=== PATIENT | male | born 1995 | race Caucasian/White ===

== ENCOUNTER 2019-04-17 20:31 | Inpatient (IN) | payer OTHER ==
[~2019-04-17] VITALS: Ht 182.9 cm; Wt 124.7 kg
[2019-04-17 20:40] VITALS: BP 143/85
--- NOTE | 2019-04-17 20:52 | NUR ---
PT BIB SELF WITH C/O ABD PAIN SINCE FRIDAY NIGHT, W/NAUSEA, PT STATES PAIN IS NOW IN RT LOWER ABD , 02/05. INCRESES WITH MOVEMENT . HAD DIARRGEA ON FRIDAY, ABDOMEN SOFT TO TOUCH AND NON-DISTENDED. DENIES ANY FEVER, CHILLS, VOMITING AT THIS TIME. ER MD TO SEE THE PT . PT LYING COMFORTABLY IN HIS BED. WILL CONTINUE TO MONITOR PT. NO PMH NKA
[2019-04-17] MEDS ORDERED: MORPHINE SULFATE 4 MG/ML SYR IVP ONE (22:00)
[2019-04-17 22:27] LABS: BASOPHILS % (AUTO) 0.4 % (0.0-2.0); EOSINOPHILS # (AUTO) 0.3 K/uL (0-0.4); EOSINOPHILS % (AUTO) 3.7 % (0.0-4.0); HEMATOCRIT 42.2 % (36-52); HEMOGLOBIN 13.7 g/dL (12.0-18.0); LYMPHOCYTES # (AUTO) 2.4 K/uL (2.0-11.5); LYMPHOCYTES % (AUTO) 29.2 % (20.5-51.1); MEAN CORPUSCULAR HEMOGLOBIN 27 pg (27-31); MEAN CORPUSCULAR HGB CONC 32 g/dL (33-37); MEAN CORPUSCULAR VOLUME 81.9 fL (80-94); MONOCYTES # (AUTO) 0.8 K/uL (0.8-1.0); MONOCYTES % (AUTO) 9.7 % (1.7-9.3); NEUTROPHILS # (AUTO) 4.6 K/uL (1.8-7.7); PLATELET COUNT (AUTO) 286 K/uL (140-450); RED BLOOD CELL COUNT(AUTO) 5.15 MIL/uL (4.20-6.10); RED CELL DISTRIBUTION WIDTH 14.5 % (11.6-13.7); WHITE BLOOD COUNT (AUTO) 8.1 K/uL (4.8-10.8)
[2019-04-17 22:38] LABS: ANION GAP 9.8 (8-16); CARBON DIOXIDE 28.4 mmol/L (21-32); POTASSIUM 4.2 mmol/L (3.5-5.1)
[2019-04-17 22:44] LABS: ALBUMIN 3.6 g/dL (3.4-5.0); TOTAL BILIRUBIN 0.3 mg/dL (0.0-1.0)
--- NOTE | 2019-04-17 22:45 | NUR ---
PT VOIDED 400 ML CLEAR YELLOW URINE.
--- NOTE | 2019-04-17 23:15 | NUR ---
URINE SAMPLE GIVEN TO LAB
[2019-04-17 23:35] LABS: APPEARANCE,URINE CLEAR (CLEAR); BILIRUBIN,URINE NEGATIVE (NEGATIVE); BLOOD, URINE NEGATIVE (NEGATIVE); COLOR,URINE YELLOW (YELLOW); LEUKOCYTE ESTERASE ,URINE NEGATIVE (NEGATIVE); NITRITE, URINE NEGATIVE (NEGATIVE); UGLUCOSE NEGATIVE (NEGATIVE)
[2019-04-18] MEDS: NACL 0.9% 1,000 ML IV SCH ×3 (00:20→12:11)
--- NOTE | 2019-04-18 00:24 | NUR ---
SPOKE WITH HENRY FROM [employer] UPDATED REGARING PT CONDITION.
[2019-04-18] MEDS ORDERED: PIPERACILLIN/TAZOBACTAM 3.375 GM in DEXTROSE 5% 50 ML IV ONE (01:00)
[2019-04-18] MEDS ORDERED: metroNIDAZOLE 500 MG/NS PREMIX 100 ML IV ONE (01:00)
[2019-04-18] MEDS ORDERED: NACL 0.9% 1,000 ML IV ONE (01:00)
[2019-04-18] MEDS ORDERED: PIPERACILLIN/TAZOBACTAM 3.375 GM VIAL IV ONE ×2 (01:16→06:06)
[2019-04-18] MEDS ORDERED: MORPHINE SULFATE 2 MG/ML SYR IVP PRN ×2 (02:15→08:20)
[2019-04-18] MEDS ORDERED: DOCUSATE SODIUM 100 MG GELCAP PO PRN (02:15)
[2019-04-18] MEDS ORDERED: ACETAMINOPHEN 325 MG TAB PO PRN (02:15)
[2019-04-18] MEDS ORDERED: LORazepam 2 MG/ML VIAL IM/IVP PRN (02:15)
[2019-04-18] MEDS ORDERED: HYDROcodone/APAP 5/325 MG 1 TAB TAB PO PRN (02:15)
[2019-04-18] MEDS ORDERED: ONDANSETRON 4 MG/2 ML VIAL IM/IVP PRN (02:15)
[2019-04-18 02:32] VITALS: BP 144/75
--- NOTE | 2019-04-18 02:32 | NUR ---
CALLED DR SHAVER FOR ORDER TO OBTAIN CONSENT.
--- NOTE | 2019-04-18 02:45 | NUR ---
Patient will be admitted to care of DR. TOBAR. Admited to MED SURG. Will go to [facility]. Belongings list completed. Report to ALFA GRNAGER.
--- NOTE | 2019-04-18 02:45 | NUR ---
Pt report given to ALFA GRANGER. Transfer of care at this time. VSS
--- NOTE | 2019-04-18 02:55 | NUR ---
RECEIVED BEDSIDE REPORT FROM PRESSURE VESSEL INSPECTOR. PT CAME IN WHEELCHAIR AND AMBULATED TO BED WITH STRONG AND STEADY GAIT. ON ROOM AIR RESPIRATIONS ARE EQUAL AND UNLABORED. SKIN IS INTACT IV ON RAC 20G FLAGYL INFUSING. DX APPENDICITIS. ORDER FOR SURGERY WITH DR SHAVER 04/18 CONSENT SIGNED. NPO SIGN ON DOOR. MRSA SWAB OBTAINED. VS: 144/75 HR 73, 97.8, 100% RA, 16 PAIN TOLERABLE 10. PLAN OF CARE DISCUSSED. ORIENTED PATIENT TO ROOM,STAFF, VISITING HOURS, AND CALL LIGHT. WILL ROUND FREQUENTLY.
[2019-04-18 03:35] LABS: CHOL/HDL RATIO 5.2 (1-4.5); MAGNESIUM 2.1 mg/dL (1.8-2.4); PHOSPHORUS 4.1 mg/dL (2.5-4.9); THYROID STIMULATING HORMONE 1.44 uIU/mL (0.34-3.74)
[2019-04-18 03:36] LABS: PROTHROMBIN TIME 9.4 secs (10.8-13.4)
--- NOTE | 2019-04-18 04:32 | NUR ---
DOCTOR IN TO SEE PATIENT. PT IS RESTING COMFORTABLY IN BED. NO S/S OF DISTRESS. WILL CONTINUE TO MONITOR.
[2019-04-18 04:57] LABS: BARBITURATE, URINE NEGATIVE ng/ml (NEG <=200); BENZODIAZEPINE, URINE NEGATIVE ng/mL (NEG <=200); CANNABINOID, URINE NEGATIVE ng/mL (NEG <=50); COCAINE, URINE NEGATIVE ng/mL (NEG <=300); OPIATE, URINE NEGATIVE ng/mL (NEG <=2000); PHENCYCLIDINE SCREEN,URINE NEGATIVE ng/mL (NEG <=25)
[2019-04-18] MEDS: PIPERACILLIN/TAZOBACTAM 3.375 GM in DEXTROSE 5% 50 ML IV SCH ×3 (06:00→22:12)
[2019-04-18] MEDS: metroNIDAZOLE 500 MG/NS PREMIX 100 ML IV SCH ×3 (06:36→22:53)
--- NOTE | 2019-04-18 06:38 | NUR ---
FLAGYL NOW INFUSING PER ORDERS. NO S/S OF DISTRESS. CALL LIGHT IS WITHIN REACH.
--- NOTE | 2019-04-18 07:22 | NUR ---
GAVE BEDSIDE REPORT TO DAY RN. PT ENDORSED IN STABLE CONDITION.
--- NOTE | 2019-04-18 07:23 | NUR ---
RECEIVED BEDSIDE REPORT FROM DIRECTOR SCHOOL OF NURSING NURSE AT BEDSIDE FOR CONTINUITY OF CARE. PT ON ROOM AIR, RESPIRATIONS EVEN AND UNLABORED, REPORTS TOLERABLE PAIN, NOT REQUESTING FOR PAIN MEDICATION AT THE MOMENT. CONSENT SIGNED. NPO FOR PROCEDURE WITH DR SHAVER. DR SHAVER IN TO SPEAK TO PATIENT. PROCEDURE SCHEDULE FOR 1899 TODAY. PLAN OF CARE DISCUSSED. HE VERBALIZED UNDERSTANDING. IV SITE INTACT, PATENT, AND ASYMPTOMATIC, INFUSING IVF WELL. UPDATED BOARD. SAFETY PRECAUTION IN PLACE, CALL LIGHT WITHIN REACH, WILL CONTINUE TO MONITOR PATIENT.
--- NOTE | 2019-04-18 07:38 | NUR ---
ISAK IVPB FINISHED INFUSING. NO COMPLAINTS FROM PATIENT. PATIENT AWARE OF PROCEDURE WITH DR. SHAVER SCHEDULED FOR 1899. WILL CONTINUE TO MONITOR PATIENT.
[2019-04-18 08:00] VITALS: BP 123/62
--- NOTE | 2019-04-18 08:15 | NUR ---
VS WNL. PATIENT RESTING COMFORTABLY IN BED, NO COMPLAINTS AT THIS TIME. WILL CONTINUE TO MONITOR PATIENT.
--- NOTE | 2019-04-18 11:30 | NUR ---
PATIENT RESTING IN BED, NO COMPLAINTS AT THIS TIME. INFORMED PATIENT MORE ABOUT PREOP AND POST OP OF PROCEDURE WITH DR. SHAVER, HE VERBALIZED UNDERSTANDING. STATES TOLERABLE PAIN AT THE MOMENT, NOT REQUESTING FOR PAIN MEDICATION. WILL CONTINUE TO MONITOR PATIENT.
--- NOTE | 2019-04-18 14:55 | NUR ---
PATIENT'S PARENTS AT BEDSIDE. UPDATED THEM WITH PLAN OF CARE, PRE OP AND POST OP. THEY VERBALIZED UNDERSTANDING. PATIENT STATES TOLERABLE PAIN AT THIS TIME, NO REQUESTING FOR PAIN MEDICATION. EDUCATED PATIENT ABOUT PAIN MANAGEMENT, PATIENT VERBALIZED UNDERSTANDING AND STATES THAT HE IS "OKAY". NO NEED FOR PRN PAIN MEDICATION AT THIS MOMENT. ALL NEEDS MET, NO COMPLAINTS AT THIS TIME. WILL CONTINUE TO MONITOR PATIENT.
--- NOTE | 2019-04-18 15:09 | NUR ---
ORDERED ANTIBIOTICS GIVEN. PATIENT TOLERATING IT. NO COMPLAINTS AT THIS TIME. WILL CONTINUE TO MONITOR PATIENT.
[2019-04-18 16:00] VITALS: BP 132/86
--- NOTE | 2019-04-18 18:24 | NUR ---
SIGNIFICANT OTHER EDIL TINAJERO AT BEDSIDE, UPDATED HER ON PT'S STATUS AND IMPENDING PROCEDURE WITH DR. SHAVER, SHE VERBALIZED UNDERSTANDING. REQUESTED THAT PATIENT REMOVE HIS JEWELRY, PATIENT ATTEMPTED TO REMOVED EARRINGS, UNABLE. WILL ENDORSE TO OR NURSE. PREOP CHECKLIST COMPLETED. PATIENT LYING COMFORTABLY IN BED, NO COMPLAINT AT THIS TIME. WILL CONTINUE TO MONITOR PATIENT.
--- NOTE | 2019-04-18 18:30 | NUR ---
MICHEAL FROM SURGERY CALLED. UPDATED HIM ABOUT PATIENT'S STATUS. UPDATED FAMILY AND PATIENT ABOUT PROCEDURE NEWS. THEY VERBALIZED UNDERSTANDING.
[2019-04-18] MEDS ORDERED: BUPIVACAINE-MPF/EPI 0.25% 30 ML VIAL INJ ONE (18:50)
--- NOTE | 2019-04-18 19:00 | NUR ---
DR SHAVER CALLED, INFORMED HIM PATIENT HAD ALREADY LEFT FLOOR, HE VERBALIZED UNDERSTANDING.
[2019-04-18] MEDS ORDERED: DESFLURANE 240 ML BTL INH ONE (19:09)
[2019-04-18] MEDS ORDERED: NEOSTIGMINE 1:1000 10 MG/10 ML VIAL ONE (19:09)
[2019-04-18] MEDS ORDERED: ONDANSETRON 4 MG/2 ML VIAL ONE (19:09)
[2019-04-18] MEDS ORDERED: LIDOCAINE 2% 100 MG/5 ML SYR IVP ONE (19:09)
[2019-04-18] MEDS ORDERED: GLYCOPYRROLATE 0.2 MG/ML VIAL ONE (19:09)
[2019-04-18] MEDS ORDERED: PROPOFOL 200 MG/20 ML VIAL IV ONE (19:09)
[2019-04-18] MEDS ORDERED: SUCCINYLCHOLINE CHLORIDE 200 MG/10 ML VIAL IVP ONE (19:09)
[2019-04-18] MEDS ORDERED: DEXAMETHASONE 4 MG/ML VIAL ONE (19:09)
[2019-04-18] MEDS ORDERED: ROCURONIUM 50 MG/5 ML VIAL IV ONE (19:09)
[2019-04-18] MEDS ORDERED: KETOROLAC 30 MG/ML VIAL ONE (19:09)
[2019-04-18] MEDS ORDERED: MIDAZOLAM 2 MG/2 ML VIAL ONE (19:10)
[2019-04-18] MEDS ORDERED: fentaNYL 0.05 MG/ML VIAL ONE (19:10)
--- NOTE | 2019-04-18 19:12 | NUR ---
REPORT GIVEN TO DRILLING FLUIDS SPECIALIST NURSE QUINCY. PATIENT ALREADY TAKEN TO PROCEDURE WITH DR. SHAVER. PATIENT IN STABLE CONDITION.
--- NOTE | 2019-04-18 19:13 | NUR ---
REPORT RECEIVED FROM AM NURSE AT BEDSIDE. PT IN STABLE CONDITION. AAOX4. PT WENT TO SURGERY FOR LAP APPY NURSE ARRIVAL TO THE FLOOR. PT HAS R AC 20G RUNNING@100ML/HR PATENT AND INTACT. SKIN WARM, DRY, AND INTACT WITH NO OPEN WOUNDS. AWAITING ON PATIENTS RETURN FROM SURGERY.
[2019-04-18] MEDS ORDERED: LIDOCAINE 1% 500 MG/50 ML VIAL ONE (19:55)
[2019-04-18] MEDS ORDERED: HYDROmorphone 1 MG/ML AMP IVP PRN (20:00)
[2019-04-18] MEDS ORDERED: ONDANSETRON 4 MG/2 ML VIAL IVP PRN (20:00)
[2019-04-18] MEDS ORDERED: HYDROmorphone 1 MG/ML AMP IM/IV PRN (20:45)
[2019-04-18] MEDS: HYDROmorphone PFS 2 MG/ML SYR ONE ×2 (21:18→21:28)
--- NOTE | 2019-04-18 21:50 | NUR ---
PT RETURNED TO THE FLOOR. VS STABLE. AAOX4. REPORT RECEIVED FROM OR NURSE.
--- NOTE | 2019-04-18 22:12 | NUR ---
BONITA HUNG AND RUNNING. PT TOLERATING WELL.
--- NOTE | 2019-04-18 22:53 | NUR ---
ISAK HUNG AND RUNNING. PT TOLERATING WELL.
[2019-04-19] VITALS: BP 125/75
--- NOTE | 2019-04-19 00:40 | NUR ---
PT LAYING IN BED WATCHING TV. NO S/S OF DISTRESS NOTED. PT SAYS HE HAS NO COMPLAINTS OF PAIN. NO SOB. PT AFEBRILE. WILL CONTINUE TO MONITOR.
--- NOTE | 2019-04-19 02:10 | NUR ---
PT SLEEPING COMFORTABLY BUT AROUSABLE. NO S/S OF DISTRESS NOTED. NO COMPLAINTS OF PAIN. NO SOB. AFEBRILE. WILL CONTINUE TO MONITOR.
--- NOTE | 2019-04-19 03:55 | NUR ---
PT AWAKE AND ALERT WATCHING TV. NO S/S OF DISTRESS NOTED. NO COMPLAINTS OF PAIN. NO SOB. AFEBRILE. WILL CONTINUE TO MONITOR.
[2019-04-19 05:50] LABS: BASOPHILS % (AUTO) 0.1 % (0.0-2.0); EOSINOPHILS % (AUTO) 0.1 % (0.0-4.0); HEMATOCRIT 40.4 % (36-52); HEMOGLOBIN 13.1 g/dL (12.0-18.0); LYMPHOCYTES % (AUTO) 8.7 % (20.5-51.1); MEAN CORPUSCULAR HEMOGLOBIN 27 pg (27-31); MEAN CORPUSCULAR HGB CONC 32 g/dL (33-37); MEAN CORPUSCULAR VOLUME 81.8 fL (80-94); MONOCYTES # (AUTO) 0.6 K/uL (0.8-1.0); MONOCYTES % (AUTO) 5.1 % (1.7-9.3); NEUTROPHILS # (AUTO) 9.9 K/uL (1.8-7.7); PLATELET COUNT (AUTO) 309 K/uL (140-450); RED BLOOD CELL COUNT(AUTO) 4.93 MIL/uL (4.20-6.10); RED CELL DISTRIBUTION WIDTH 14.3 % (11.6-13.7); WHITE BLOOD COUNT (AUTO) 11.5 K/uL (4.8-10.8)
[2019-04-19] MEDS: PIPERACILLIN/TAZOBACTAM 3.375 GM in DEXTROSE 5% 50 ML IV SCH ×2 (06:01→16:02)
--- NOTE | 2019-04-19 06:01 | NUR ---
BONITA HUNG AND RUNNING. PT TOLERATING WELL.
[2019-04-19 06:10] LABS: ANION GAP 13.4 (8-16); CARBON DIOXIDE 24.6 mmol/L (21-32)
[2019-04-19 06:21] LABS: MAGNESIUM 1.8 mg/dL (1.8-2.4); PHOSPHORUS 4.2 mg/dL (2.5-4.9)
[2019-04-19] MEDS: metroNIDAZOLE 500 MG/NS PREMIX 100 ML IV SCH (06:36)
--- NOTE | 2019-04-19 06:36 | NUR ---
ISAK HUNG AND RUNNING. PT TOLERATING WELL.
--- NOTE | 2019-04-19 07:17 | NUR ---
REPORT GIVEN TO AM NURSE AT BEDSIDE. PT IN STABLE CONDITION.
--- NOTE | 2019-04-19 07:19 | NUR ---
RECEIVED BEDSIDE REPORT FROM WIRELESS CONSTRUCTION MANAGER NURSE AT BEDSIDE. PT IS AAOX4. PT ON ROOM AIR, RESPIRATIONS EVEN AND UNLABORED. PT IS S/P APPENDECTOMY. DRESSINGS ON ABD INCISIONS DRY AND INTACT. PLAN OF CARE DISCUSSED. HE VERBALIZED UNDERSTANDING. IV SITE INTACT, PATENT, AND ASYMPTOMATIC, INFUSING IVF WELL. UPDATED BOARD. SAFETY PRECAUTION IN PLACE, CALL LIGHT WITHIN REACH, WILL MONITOR PATIENT CLOSELY.
[2019-04-19 08:05] VITALS: BP 122/73
[2019-04-19] MEDS: NACL 0.9% 1,000 ML IV SCH (08:11)
--- NOTE | 2019-04-19 08:38 | NUR ---
PATIENT HAS BEEN SCREENED AND CATEGORIZED LOW NUTRITION RISK. PATIENT WILL BE SEEN WITHIN 7 DAYS OF ADMISSION. 04/25/[address]
--- NOTE | 2019-04-19 09:24 | NUR ---
PT RESTING IN BED. NO COMPLAINTS OF PAIN OR DISTRESS AT THIS TIME. WILL CONTINUE TO ROUND FREQUENTLY ON PT. BED IN LOW POSITION, CALL LIGHT WITHIN REACH.
--- NOTE | 2019-04-19 11:11 | NUR ---
PT EATING LATE BREAKFAST TRAY. NO COMPLAINTS OF PAIN OR DISTRESS AT THIS TIME. WILL CONTINUE TO ROUND FREQUENTLY ON PT. BED IN LOW POSITION, CALL LIGHT WITHIN REACH.
[2019-04-19] MEDS ORDERED: metroNIDAZOLE 500 MG/NS PREMIX 100 ML IV SCH (13:00)
--- NOTE | 2019-04-19 13:48 | NUR ---
PT RESTING IN BED. NO SIGNS OF PAIN OR DISTRESS. WILL CONTINUE TO MONITOR PT CLOSELY.
--- NOTE | 2019-04-19 15:47 | NUR ---
PT SLEEPING IN BED. NO SIGNS OF PAIN OR SOB. WILL CONTINUE TO ROUND FREQUENTLY ON PT.
[2019-04-19 16:00] VITALS: BP 131/84
[2019-04-19] MEDS ORDERED: IBUP-2213 PO (17:23)
[2019-04-19] MEDS ORDERED: CEPH250C16 PO (17:23)
--- NOTE | 2019-04-19 17:44 | NUR ---
PT REQUESTING TO GO [facility]. AWARE AND WILL TALK WITH PT. PT STABLE AND WAITING IN BED WITH FAMILY AT BEDSIDE.
--- NOTE | 2019-04-19 18:10 | NUR ---
PT LEFT AMA DESPITE MD ADVICE. PT LEFT IN STABLE CONDITION. IV WAS REMOVED WITH TIP INTACT. WRIST BANDS WERE REMOVED AND PLACED IN SHRED BIN. MD GAVE PRESCRIPTION FOR ABX. EXPLAINED IMPORTANCE OF FINISHING ALL MEDS TO PT. PT VERBALIZED UNDERSTANDING OF SIGNING AMA FORM AND MED INSTRUCTIONS. PT LEFT HOME WITH FAMILY.
== END 2019-04-19 18:10 | disposition left against medical advice (07) | DRG 234 ==
LOC: MED 20:31 → MTU 04-18 02:11 → OBSVTOIN 04-18 16:04
PROVIDERS: ADMIT General Practice; ATTEND General Practice
PROC: 0DTJ4ZZ Resection of Appendix, Percutaneous Endoscopic Approach (ICD-10-PCS; principal; 2019-04-18 19:00)
DX: K35.80 Unspecified acute appendicitis (principal); E66.9 Obesity, unspecified; Z68.37 Body mass index [BMI] 37.0-37.9, adult; Z71.3 Dietary counseling and surveillance
CPT/HCPCS: 96361; 96365; 96367; 96375; 99218; 99285; G0378; 36415; 71045; 80048; 80053; 80305; 81003; 82150; 82374; 83036; 83690; 83735; 84100; 84443; 85025; 85610; 85651; 85730; 86140; 87081; 88304; J0330; J1100; J1170; J1885; J2001; J2250; J2270; J2405; J2543; J2704; J2710; J3010; J3490; J7030; J7060; Q0092; Q9967